=== PATIENT | male | born 1955 | race Caucasian/White ===

== ENCOUNTER 2016-09-06 02:59 | Observation (INO) | payer MEDICARE ==
[2016-09-06] MEDS ORDERED: Aspirin Low Dose CHEW TAB* 81 MG PO ONE (04:04)
[2016-09-06 04:10] LABS: Hematocrit 40 % (42-52); Hemoglobin 13.4 g/dl (14.0-18.0); Mean Corpuscular HGB Conc 33 g/dl (31-36); Mean Corpuscular Hemoglobin 31 pg (27-31); Mean Corpuscular Volume 93 fL (80-94); Mean Platelet Volume 7 um3 (7.4-10.4); Red Blood Count 4.36 10^6/ul (4.0-5.4); Red Cell Distribution Width 13 % (10.5-15); White Blood Count 11.3 10^3/ul (3.5-10.8)
[2016-09-06] MEDS ORDERED: Heparin DRIP 25,000 UNITS(*) 25,000 UNITS/500 ML BAG IVPB ONE (04:15)
[2016-09-06 04:22] LABS: ALT 40 U/L (7-52); Albumin 3.8 g/dL (3.2-5.2); Alkaline Phosphatase 63 U/L (34-104); BUN/Creatinine Ratio 17.5 (8-20); Blood Urea Nitrogen 20 mg/dL (6-24); CO2 Carbon Dioxide 25 mmol/L (22-32); Calcium 9.3 mg/dL (8.6-10.3); Chloride 100 mmol/L (101-111); EGFR African American 83.7 (>60); EGFR Non-African American 65.1 (>60); Glucose 105 mg/dL (70-100); Sodium 129 mmol/L (133-145); Total Protein 6.8 g/dL (6.4-8.9)
[2016-09-06 04:24] LABS: Troponin I 0.01 ng/mL (<0.04)
[2016-09-06] MEDS ORDERED: Heparin VIAL(*) 5000 UNITS/ML VIAL (FIVE THOUSAND) ONE (04:29)
[2016-09-06 04:30] LABS: AST 35 U/L (13-39); Anion Gap 4 mmol/L (2-11)
[2016-09-06] MEDS ORDERED: Heparin VIAL(*) 5000 UNITS/ML VIAL (FIVE THOUSAND) IV SCH ×2 (05:00→08:00)
[2016-09-06] MEDS: Metoprolol Succinate XL TAB* 25 MG PO SCH ×2 (05:11→09:18)
[2016-09-06] MEDS ORDERED: Morphine INJ* 4 MG/ML 1 ML CARPUJECT IV ONE (05:30)
[2016-09-06 06:07] LABS: Alcohol < 10 mg/dL (<10)
[2016-09-06] MEDS ORDERED: Albuterol 2.5 MG/3 ML NEB.SOL* (0.083%) INH PRN (06:26)
[2016-09-06] MEDS ORDERED: Ondansetron INJ* 2 MG/ML VIAL IV PRN (06:26)
[2016-09-06] MEDS ORDERED: traMADol TAB* 50 MG PO PRN (06:26)
[2016-09-06] MEDS ORDERED: Acetaminophen TAB* 325 MG PO PRN (06:26)
[2016-09-06] MEDS ORDERED: NS 0.9% 1000 ML* 1,000 ML IV SCH (06:30)
--- NOTE | 2016-09-06 06:31 | HP ---
H&P (Free Text) History and Physical: PCP: Adan Cordova MD Date/Time of Evaluation: 09/06/2016 0600 CC: palpitation, chest pressure, SOB HPI: Mr Cheng is a 60YO male HX paroxysmal AFIB, HTN, HLD whose AFIB is typically triggered by alcohol and excessive caffeine intake. He reports drinking 6beers yesterday and 2-3 more cups of coffee than usual. He awoke this AM 2nd irregular palpitations like his typical pAFIB, but in addition also had some mild chest pressure and SOB. He denies any nausea, light-headedness, sweats , F/C, cough, congestion, or other issues. He states he was seen ~1week ago by his PCP who gave him an ABX for a cough and increased his BP meds. He cut his BP med back to the previous dose ~2days later because it had dropped to a systolic of 80s. He states his cough is resolved. ECG shows AFIB rate 105 w/ mild ST elevations in V3-6 & I which appears similar to an ECG date 11/15/2015. pCXR is most consistent with interstitial edema. Lab values are reasonably normal. PMedHx HTN HLD paroxysmal AFIB on warfarin GERD anxiety COPD chronic low back pain HX prostate CA Allergies No Known Allergies Allergy (Verified 09/06/16 03:08) Ambulatory Orders ALPRAZolam TAB* [Xanax TAB*] 0.5 mg PO DAILY 07/01/12 Ranitidine TAB (NF) [Zantac TAB (NF)] 150 mg PO BID 07/01/12 Ipratropium 0.5MG/2.5ML NEB* [Atrovent 0.5 MG NEB.MAYRA*] 0.5 mg INH Q4HR PRN 10/20 Albuterol Sulfate [Proair Respiclick] 2 puff INH Q4HR PRN 04/28/15 Atorvastatin* [Lipitor 10 MG*] 10 mg PO DAILY 04/28/15 Fluticasone HFA 110 mcg(NF) [Flovent HFA 110 mcg(NF)] 2 puff INH BID 04/28/15 Losartan TAB* [Cozaar TAB*] 50 mg PO DAILY 04/28/15 Metoprolol Succinate XL TAB* [Toprol XL TAB*] 100 mg PO QAM 10/21/15 Morphine Sulfate Beads [Morphine Sulfate ER] 30 mg PO Q12HR 04/28/15 Morphine TAB (NF) 15 mg PO Q8HR 04/28/15 Potassium Chlor TAB* [Klor Con ER TAB*] 10 meq PO DAILY 04/28/15 Warfarin TAB(*) [Coumadin TAB(*)] 2 mg PO DAILY 04/28/15 PSurgHx L-spine surgery tonsillectomy prostatectomy SocHx: former smoker now dipping 1can smokeless tobacco daily, mild/episodic alcohol consumption, denies recreational drugs; , lives with his ; on disability for his chronic LBP, former worked construction; full code status FamHx: positive for HTN, HLD, CAD ROS: as above, otherwise reviewed and all were negative Constitutional: NAD, normally developed, well-nourished white male vitals: Vital Signs Temp 36.6 C 09/06/16 04:00 Pulse 106 09/06/16 04:00 Resp 20 09/06/16 05:35 BP 90/64 09/06/16 04:00 Pulse Ox 99 09/06/16 04:00 Intake & Output 09/05/16 09/05/16 09/06/16 11:59 23:59 11:59 Weight 83.915 kg HEENM: atraumatic; sclera/conjunctiva: non-icteric/clear; hearing: clinically intact; oropharynx: clear, mucosa moist Neck: soft tissue: non-tender; thyroid: normal Pulmonary: clear to auscultation bilaterally, good aeration, no accessory muscle use CV: RR/RR, normal S1S2, no carotid bruit, no jugular venous distention, 2+ B DP/ PT, no edema Abdominal: soft, non-distended, non-tender, no rebound/guarding/rigidity, normoactive bowel sounds, no hepatosplenomegaly or masses, no costovertebral angle tenderness Musculoskeletal: general: grossly intact; gait: stable Integumental: normal appearance and texture of exposed skin Psychiatric orientation: AA&O to PPS affect: calm mood: cooperative eye contact: good content: reliable responses: timely insight: fair Testing: Lab Results 09/06/16 09/06/16 09/06/16 Range/Units 03:55 03:55 03:55 WBC 11.3 H (3.5-10.8) 10^3/ul RBC 4.36 (4.0-5.4) 10^6/ul Hgb 13.4 L (14.0-18.0) g/dl Hct 40 L (42-52) % MCV 93 (80-94) fL MCH 31 (27-31) pg MCHC 33 (31-36) g/dl RDW 13 (10.5-15) % Plt Count 287 (150-450) 10^3/ul MPV 7 L (7.4-10.4) um3 Neut % (Auto) 52.2 (38-83) % Lymph % (Auto) 33.3 (25-47) % Toole % (Auto) 7.4 (1-9) % Eos % (Auto) 6.1 H (0-6) % Baso % (Auto) 1.0 (0-2) % Absolute Neuts (auto) 5.9 (1.5-7.7) 10^3/ul Absolute Lymphs (auto) 3.8 (1.0-4.8) 10^3/ul Absolute Monos (auto) 0.8 (0-0.8) 10^3/ul Absolute Eos (auto) 0.7 H (0-0.6) 10^3/ul Absolute Basos (auto) 0.1 (0-0.2) 10^3/ul Absolute Nucleated RBC 0.01 10^3/ul Nucleated RBC % 0.1 INR (Anticoag Therapy) (0.89-1.11) APTT (26.0-36.3) seconds Sodium 129 L (133-145) mmol/L Potassium 4.0 (3.5-5.0) mmol/L Chloride 100 L (101-111) mmol/L Carbon Dioxide 25 (22-32) mmol/L Anion Gap 4 (2-11) mmol/L BUN 20 (6-24) mg/dL Creatinine 1.14 (0.67-1.17) mg/dL Est GFR ( Amer) 83.7 (>60) Est GFR (Non-Af Amer) 65.1 (>60) BUN/Creatinine Ratio 17.5 (8-20) Glucose 105 H (70-100) mg/dL Lactic Acid 1.0 (0.5-2.0) mmol/L Calcium 9.3 (8.6-10.3) mg/dL Total Bilirubin 0.30 (0.2-1.0) mg/dL AST 35 (13-39) U/L ALT 40 (7-52) U/L Alkaline Phosphatase 63 (34-104) U/L Troponin I 0.01 (<0.04) ng/mL Total Protein 6.8 (6.4-8.9) g/dL Albumin 3.8 (3.2-5.2) g/dL Globulin 3.0 (2-4) g/dL Albumin/Globulin Ratio 1.3 (1-3) Serum Alcohol < 10 (<10) mg/dL 09/06/16 Range/Units 03:55 WBC (3.5-10.8) 10^3/ul RBC (4.0-5.4) 10^6/ul Hgb (14.0-18.0) g/dl Hct (42-52) % MCV (80-94) fL MCH (27-31) pg MCHC (31-36) g/dl RDW (10.5-15) % Plt Count (150-450) 10^3/ul MPV (7.4-10.4) um3 Neut % (Auto) (38-83) % Lymph % (Auto) (25-47) % Toole % (Auto) (1-9) % Eos % (Auto) (0-6) % Baso % (Auto) (0-2) % Absolute Neuts (auto) (1.5-7.7) 10^3/ul Absolute Lymphs (auto) (1.0-4.8) 10^3/ul Absolute Monos (auto) (0-0.8) 10^3/ul Absolute Eos (auto) (0-0.6) 10^3/ul Absolute Basos (auto) (0-0.2) 10^3/ul Absolute Nucleated RBC 10^3/ul Nucleated RBC % INR (Anticoag Therapy) 1.50 H (0.89-1.11) APTT 35.4 (26.0-36.3) seconds Sodium (133-145) mmol/L Potassium (3.5-5.0) mmol/L Chloride (101-111) mmol/L Carbon Dioxide (22-32) mmol/L Anion Gap (2-11) mmol/L BUN (6-24) mg/dL Creatinine (0.67-1.17) mg/dL Est GFR ( Amer) (>60) Est GFR (Non-Af Amer) (>60) BUN/Creatinine Ratio (8-20) Glucose (70-100) mg/dL Lactic Acid (0.5-2.0) mmol/L Calcium (8.6-10.3) mg/dL Total Bilirubin (0.2-1.0) mg/dL AST (13-39) U/L ALT (7-52) U/L Alkaline Phosphatase (34-104) U/L Troponin I (<0.04) ng/mL Total Protein (6.4-8.9) g/dL Albumin (3.2-5.2) g/dL Globulin (2-4) g/dL Albumin/Globulin Ratio (1-3) Serum Alcohol (<10) mg/dL ECG, personally reviewed: AFIB rate 105 w/ mild ST elevations in V3-6 & I which appears similar to an ECG date 11/15/2015 CXR, personally reviewed: most consistent with interstitial edema. Lab values are reasonably normal Impression: 60M presenting with an episode of AFIB/RVR w/ chest pressure & SOB not typical for him DIAGNOSIS & PLAN Primary chest pain : telemetry : aspirin : metoprolol : heparin GTT : trend troponin : NST this AM : supplemental oxygen : supportive care AFIB/RVR : INR subtherapeutic, continue warfarin at increased dose of 2.5mg daily from 2mg : heparin GTT : rate control Secondary HTN : continue losartan & metoprolol HLD : continue atorvastatin GERD : hold ranitidine : IV pantoprazole anxiety : continue alprazolam COPD : albuterol nebs : mometasone/salmeterol : tiotropium chronic low back pain : continue morphine home regimen Admission Rational: observation for r/o ACS and control of AFIB/RVR DVTp: heparin GTT bridge to warfarin Code Status: full HCP:
--- NOTE | 2016-09-06 06:34 | ED ---
Eleonora Mitchell Erika, scribed for Law Almaguer MD on 09/06/16 at 0355 . Palpitations / Dysrhythmia - HPI Summary HPI Summary: Patient is a 60-year-old male presenting to the ED with a CC of palpitations. Patient reports a Hx A Fib, and states this felt similar. He reports that at 00: 00, pt woke up from his sleep with intermittent flutters, which then became constant. Patient took Xanax and metoprolol, and states palpitations have somewhat improved. Patient also reports mid-sternal chest pain he describes as "heartburn," which started at 00:30. This pain lasted 1 hour, and was most notable when pt stood up. Pt states he did drink EtOH last night. - History of Current Complaint Chief Complaint: EDDysrhythmPalp Time Seen by Provider: 09/06/16 03:46 Hx Obtained From: Patient Onset/Duration: Sudden Onset, Lasting Hours, Still Present - improving Timing: Constant Severity Initially: Moderate Severity Currently: Mild Character: Fluttering Alleviating: Medication - xanax and metoprolol Associated Signs & Symptoms: Chest Pain - mid-sternal, resolved - Allergy/Home Medications Allergies/Adverse Reactions: Allergies Allergy/AdvReac Type Severity Reaction Status Date / Time No Known Allergies Allergy Verified 09/06/16 03:08 PMH/Surg Hx/FS Hx/Imm Hx Endocrine/Hematology History: Reports: Hx Anticoagulant Therapy - coumadin Denies: Hx Diabetes, Hx Thyroid Disease Cardiovascular History: Reports: Hx Hypertension - on meds Denies: Hx Congestive Heart Failure, Hx Pacemaker/ICD Respiratory History: Reports: Hx Chronic Obstructive Pulmonary Disease (COPD), Other Respiratory Problems/Disorders Denies: Hx Asthma History: Denies: Hx Renal Disease Musculoskeletal History: Reports: Hx Back Problems Sensory History: Reports: Hx Contacts or Glasses - reading glasses Denies: Hx Hearing Aid Opthamlomology History: Reports: Hx Contacts or Glasses - reading glasses Neurological History: Denies: Hx Dementia, Hx Seizures Psychiatric History: Reports: Hx Anxiety, Hx Substance Abuse - alcohol daily Denies: Hx Panic Disorder - Cancer History Cancer Type, Location and Year: PROSTATE CA - Surgical History Surgery Procedure, Year, and Place: 1995 LSP BACK SURGERY. 2010 PROSTATECTOMY. 2008 [facility] Hx Anesthesia Reactions: No - Immunization History Date of Tetanus Vaccine: UNK Date of Influenza Vaccine: 06/19 Infectious Disease History: No Infectious Disease History: Denies: Hx Hepatitis, Hx Human Immunodeficiency Virus (HIV), Traveled Outside the [place] in Last 30 Days - Family History Known Family History: Positive: Cardiac Disease Family History: father, brother, sister - CABG - Social History Lives: With Family Alcohol Use: Daily Hx Substance Use: No Substance Use Type: Reports: None Hx Tobacco Use: Yes Smoking Status (MU): Former Smoker Type: Cigarettes Have You Smoked in the Last Year: Yes Review of Systems Negative: Fever Positive: Palpitations, Chest Pain All Other Systems Reviewed And Are Negative: Yes Physical Exam Triage Information Reviewed: Yes Vital Signs On Initial Exam: Initial Vitals Temp Pulse Resp BP Pulse Ox 98.2 F 80 14 135/76 98 09/06/16 03:02 09/06/16 03:02 09/06/16 03:02 09/06/16 03:02 09/06/16 03:02 Vital Signs Reviewed: Yes Appearance: Positive: Well-Appearing, No Pain Distress Skin: Positive: Warm Eyes: Positive: TONEY ENT: Positive: Hearing grossly normal Neck: Positive: Supple Respiratory/Lung Sounds: Positive: Clear to Auscultation, Breath Sounds Present Cardiovascular: Positive: IRR. Negative: Murmur Abdomen Description: Positive: Nontender, Soft Bowel Sounds: Positive: Present Musculoskeletal: Positive: Strength/ROM Intact Neurological: Positive: Sensory/Motor Intact, Alert, Oriented to Person Place, Time, Normal Gait Psychiatric: Positive: Affect/Mood Appropriate Diagnostics - Vital Signs Vital Signs Temp Pulse Resp BP Pulse Ox 09/06/16 03:02 98.2 F 80 14 135/76 98 - Laboratory Lab Results: Lab Results 09/06/16 09/06/16 09/06/16 Range/Units 03:55 03:55 03:55 WBC 11.3 H (3.5-10.8) 10^3/ul RBC 4.36 (4.0-5.4) 10^6/ul Hgb 13.4 L (14.0-18.0) g/dl Hct 40 L (42-52) % MCV 93 (80-94) fL MCH 31 (27-31) pg MCHC 33 (31-36) g/dl RDW 13 (10.5-15) % Plt Count 287 (150-450) 10^3/ul MPV 7 L (7.4-10.4) um3 Neut % (Auto) 52.2 (38-83) % Lymph % (Auto) 33.3 (25-47) % Hamlin % (Auto) 7.4 (1-9) % Eos % (Auto) 6.1 H (0-6) % Baso % (Auto) 1.0 (0-2) % Absolute Neuts (auto) 5.9 (1.5-7.7) 10^3/ul Absolute Lymphs (auto) 3.8 (1.0-4.8) 10^3/ul Absolute Monos (auto) 0.8 (0-0.8) 10^3/ul Absolute Eos (auto) 0.7 H (0-0.6) 10^3/ul Absolute Basos (auto) 0.1 (0-0.2) 10^3/ul Absolute Nucleated RBC 0.01 10^3/ul Nucleated RBC % 0.1 INR (Anticoag Therapy) (0.89-1.11) APTT (26.0-36.3) seconds Sodium 129 L (133-145) mmol/L Potassium 4.0 (3.5-5.0) mmol/L Chloride 100 L (101-111) mmol/L Carbon Dioxide 25 (22-32) mmol/L Anion Gap 4 (2-11) mmol/L BUN 20 (6-24) mg/dL Creatinine 1.14 (0.67-1.17) mg/dL Est GFR ( Amer) 83.7 (>60) Est GFR (Non-Af Amer) 65.1 (>60) BUN/Creatinine Ratio 17.5 (8-20) Glucose 105 H (70-100) mg/dL Lactic Acid 1.0 (0.5-2.0) mmol/L Calcium 9.3 (8.6-10.3) mg/dL Total Bilirubin 0.30 (0.2-1.0) mg/dL AST 35 (13-39) U/L ALT 40 (7-52) U/L Alkaline Phosphatase 63 (34-104) U/L Troponin I 0.01 (<0.04) ng/mL Total Protein 6.8 (6.4-8.9) g/dL Albumin 3.8 (3.2-5.2) g/dL Globulin 3.0 (2-4) g/dL Albumin/Globulin Ratio 1.3 (1-3) Serum Alcohol < 10 (<10) mg/dL 09/06/16 Range/Units 03:55 WBC (3.5-10.8) 10^3/ul RBC (4.0-5.4) 10^6/ul Hgb (14.0-18.0) g/dl Hct (42-52) % MCV (80-94) fL MCH (27-31) pg MCHC (31-36) g/dl RDW (10.5-15) % Plt Count (150-450) 10^3/ul MPV (7.4-10.4) um3 Neut % (Auto) (38-83) % Lymph % (Auto) (25-47) % Hamlin % (Auto) (1-9) % Eos % (Auto) (0-6) % Baso % (Auto) (0-2) % Absolute Neuts (auto) (1.5-7.7) 10^3/ul Absolute Lymphs (auto) (1.0-4.8) 10^3/ul Absolute Monos (auto) (0-0.8) 10^3/ul Absolute Eos (auto) (0-0.6) 10^3/ul Absolute Basos (auto) (0-0.2) 10^3/ul Absolute Nucleated RBC 10^3/ul Nucleated RBC % INR (Anticoag Therapy) 1.50 H (0.89-1.11) APTT 35.4 (26.0-36.3) seconds Sodium (133-145) mmol/L Potassium (3.5-5.0) mmol/L Chloride (101-111) mmol/L Carbon Dioxide (22-32) mmol/L Anion Gap (2-11) mmol/L BUN (6-24) mg/dL Creatinine (0.67-1.17) mg/dL Est GFR ( Amer) (>60) Est GFR (Non-Af Amer) (>60) BUN/Creatinine Ratio (8-20) Glucose (70-100) mg/dL Lactic Acid (0.5-2.0) mmol/L Calcium (8.6-10.3) mg/dL Total Bilirubin (0.2-1.0) mg/dL AST (13-39) U/L ALT (7-52) U/L Alkaline Phosphatase (34-104) U/L Troponin I (<0.04) ng/mL Total Protein (6.4-8.9) g/dL Albumin (3.2-5.2) g/dL Globulin (2-4) g/dL Albumin/Globulin Ratio (1-3) Serum Alcohol (<10) mg/dL Result Diagrams: 09/06/16 03:55 09/06/16 03:55 Lab Statement: Any lab studies that have been ordered have been reviewed, and results considered in the medical decision making process. - EKG 03:37 Cardiac Rate: Tachycardia - at 105 bpm EKG Rhythm: Atrial Fibrillation - with RVR EKG Interpretation: ST elevated I, aVL, V6. Discussed with Dr. Baker 04:35 EKG Comparison: No Significant Change - from prior Re-Evaluation - Re-Evaluation First Eval Re-Evaluation Time: 03:45 - case d/w dr baker who reviewed ekg, no stemi criteria, rec heparin Course/Dx - Course Assessment/Plan: A 60 y/o M presents to the ED after a 1 hour episode of midsternal chest pain, described as burning, and heart flutters. Pt has a Hx A Fib. EKG shows A Fib at 105 bpm with RVR, and ST elevated in I, aVL, and V6. EKG was discussed with Dr. Baker, who recommends admission, repeat EKG, and heparin drip at this time. Initial troponin was 0.01. Patient will be admitted to Dr. Luna for further work up and management. - Diagnoses Provider Diagnoses: ACS (acute coronary syndrome), Rapid atrial fibrillation - Physician Notifications Discussed Care Of Patient With: Dr. Baker (interventionalist) at 03:53 - discussed EKG and history. Recommends heparin drip and repeat EKG in [address] Luna (hospitalist) at 04:09 - agrees to admit Instructed by Provider To: Admit As Inpatient - Critical Care Time Critical Care Time: 30-74 min Discharge - Discharge Plan Condition: Stable Disposition: ADMITTED TO [facility] Referrals: Megan Lomeli MD [Primary Care Provider] - The documentation as recorded by the scribEleonora alva Erika accurately reflects the service I personally performed and the decisions made by me, Law Almaguer MD.
[2016-09-06] MEDS ORDERED: Heparin DRIP 25,000 UNITS(*) 25,000 UNITS/500 ML BAG IV SCH (07:45)
[2016-09-06] MEDS ORDERED: Spiriva Inhaler DEVICE* 1 EACH DEVICE INH ONE (08:00)
[2016-09-06] MEDS ORDERED: Regadenoson* 0.4 MG/5 ML SYRINGE ONE (08:07)
[2016-09-06] MEDS: Albuterol 2.5 MG/3 ML NEB.SOL* (0.083%) INH SCH ×2 (08:22→14:51)
[2016-09-06 08:36] LABS: Hematocrit 42 % (42-52); Hemoglobin 14.4 g/dl (14.0-18.0); Mean Corpuscular HGB Conc 34 g/dl (31-36); Mean Corpuscular Hemoglobin 32 pg (27-31); Mean Corpuscular Volume 92 fL (80-94); Mean Platelet Volume 7 um3 (7.4-10.4); Red Blood Count 4.56 10^6/ul (4.0-5.4); Red Cell Distribution Width 13 % (10.5-15); White Blood Count 10.4 10^3/ul (3.5-10.8)
--- NOTE | 2016-09-06 08:37 | RAD ---
Indication: Atrial fibrillation, chest pain. Single frontal view of the chest performed at 0418 hours was reviewed. Comparison is made with previous exam dated November 15, 2015. Cardiomegaly is noted. Hyperinflated lung leahy with chronic interstitial disease is noted. No alveolar consolidation is noted. IMPRESSION: FINDINGS CONSISTENT WITH CHRONIC INTERSTITIAL DISEASE.
[2016-09-06 08:51] LABS: Troponin I 0.01 ng/mL (<0.04)
[2016-09-06] MEDS ORDERED: Losartan TAB* 25 MG PO SCH (09:00)
[2016-09-06] MEDS ORDERED: Potassium Chlor TAB* 10 MEQ TAB.ER PO SCH (09:00)
[2016-09-06] MEDS ORDERED: Pantoprazole IV* 40 MG IV SCH (09:00)
[2016-09-06] MEDS ORDERED: Aspirin TAB* 325 MG PO SCH (09:00)
[2016-09-06] MEDS ORDERED: Docusate CAP* 100 MG PO SCH (09:00)
[2016-09-06] MEDS ORDERED: Atorvastatin* 10 MG TAB PO SCH (09:00)
[2016-09-06] MEDS ORDERED: Morphine TAB Extended Release (*) 30 MG TAB.ER PO SCH (09:00)
[2016-09-06] MEDS ORDERED: Tiotropium CAP.INH* CAP.INH/18 MCG (USE ORDER SET !) INH SCH (09:00)
[2016-09-06] MEDS ORDERED: ALPRAZolam TAB* 0.5 MG PO SCH (09:00)
[2016-09-06] MEDS ORDERED: Mometasone/Formoter 200/5 MDI INH SCH (09:00)
[2016-09-06] MEDS ORDERED: [UNRECOGNIZED DRUG - OTHER] PO SCH (09:00)
[2016-09-06] MEDS ORDERED: Metoprolol Succinate XL TAB* 100 MG PO SCH (09:00)
[2016-09-06 11:41] LABS: Troponin I 0.01 ng/mL (<0.04)
[2016-09-06] MEDS ORDERED: Morphine TAB (NF) 15 MG TAB PO SCH (14:00)
[2016-09-06] MEDS ORDERED: Morphine ORAL.SOLN 10 mg* 2 MG/ML UDC 5 ml PO SCH (14:00)
--- NOTE | 2016-09-06 16:25 | PN ---
Subjective Date of Service: 09/06/16 Interval History: Pt is feeling well. He states he has intermittently been lightheaded but none recently while sitting up in bed. No chest pain. He thinks the chest discomfort prior to presenting to the ER was acid reflux. He wants to go home. Objective Active Medications: Acetaminophen (Tylenol Tab*) 650 mg PO Q6H PRN PRN Reason: FEVER/PAIN Albuterol (Ventolin 2.5 Mg/3 Ml Neb.Aaliyah*) 2.5 mg INH Q2H PRN PRN Reason: SOB/WHEEZING Albuterol (Ventolin 2.5 Mg/3 Ml Neb.Aaliyah*) 2.5 mg INH [id number] AWAKE [facility] Last Admin: 09/06/16 14:51 Dose: 2.5 mg Alprazolam (Xanax Tab*) 0.5 mg PO DAILY [facility] Last Admin: 09/06/16 09:13 Dose: 0.5 mg Aspirin (Aspirin Tab*) 325 mg PO DAILY SKYLAR Last Admin: 09/06/16 09:14 Dose: 325 mg Atorvastatin Calcium (Lipitor*) 10 mg PO DAILY [facility] Last Admin: 09/06/16 09:14 Dose: 10 mg Docusate Sodium (Colace Cap*) 200 mg PO BID SKYLAR Last Admin: 09/06/16 09:15 Dose: 200 mg Heparin Sodium (Porcine) (Heparin Vial(*)) 0 units IV .PER PROTOCOL SKYLAR PRN Reason: Protocol Last Admin: 09/06/16 04:41 Dose: 6,200 units Sodium Chloride (Ns 0.9% 1000 Ml*) 1,000 mls @ 100 mls/hr IV PER RATE [facility] Last Admin: 09/06/16 08:40 Dose: 100 mls/hr Heparin Sodium/Dextrose (Heparin Drip 25,000 Units(*)) 25,000 units in 500 mls @ 0 mls/hr IV .NO INITIAL BOLUS SKYLAR; As Directed PRN Reason: Protocol Losartan Potassium (Cozaar Tab*) 50 mg PO DAILY [facility] Last Admin: 09/06/16 09:20 Dose: 50 mg Melatonin (Melatonin (Nf)) 3 mg PO BEDTIME PRN; Protocol PRN Reason: Sleep Metoprolol Succinate (Toprol Xl Tab*) 12.5 mg PO DAILY [facility] Last Admin: 09/06/16 09:18 Dose: 12.5 mg Metoprolol Succinate (Toprol Xl Tab*) 100 mg PO QAM [facility] Last Admin: 09/06/16 09:20 Dose: 100 mg Mometasone Furoate/Formoterol Fumar (Dulera 200/5 Mdi*) 2 puff INH BID [facility] Last Admin: 09/06/16 08:25 Dose: 2 puff Morphine Sulfate (Morphine Oral.Soln 10 Mg*) 15 mg PO Q8HR [facility] Last Admin: 09/06/16 15:06 Dose: 15 mg Morphine Sulfate (Ms Contin(*)) 30 mg PO Q12H [facility] Last Admin: 09/06/16 09:17 Dose: 30 mg Ondansetron HCl (Zofran Inj*) 4 mg IV Q6H PRN PRN Reason: NAUSEA Pantoprazole Sodium (Protonix Iv*) 40 mg IV DAILY [facility] Last Admin: 09/06/16 09:20 Dose: 40 mg Pharmacy Profile Note (Coumadin Daily Reminder*) 1 note FOLLOW UP 1700 [facility] Potassium Chloride (Klor Con Er Tab*) 10 meq PO DAILY [facility] Last Admin: 09/06/16 09:21 Dose: 10 meq Tiotropium [place] (Spiriva Cap.Inh*) 1 cap INH DAILY [facility] Last Admin: 09/06/16 08:25 Dose: 1 cap.inh Tramadol HCl (Ultram*) 50 mg PO Q6H PRN PRN Reason: PAIN Last Admin: 09/06/16 07:11 Dose: 50 mg Warfarin Sodium (Coumadin Tab(*)) 2.5 mg PO DAILY@1700 [facility] PRN Reason: Protocol Vital Signs 09/06/16 09/06/16 09/06/16 06:30 07:00 07:30 Temperature Pulse Rate 89 83 88 Respiratory 18 16 13 Rate Blood Pressure 94/63 92/63 99/64 (mmHg) O2 Sat by Pulse 93 94 95 Oximetry 09/06/16 09/06/16 09/06/16 07:44 08:00 08:09 Temperature Pulse Rate 110 83 Respiratory 18 14 18 Rate Blood Pressure 98/64 111/71 (mmHg) O2 Sat by Pulse 95 Oximetry 09/06/16 09/06/16 09/06/16 08:21 08:22 08:29 Temperature 97.7 F 97.7 F Pulse Rate 61 91 92 Respiratory 20 20 16 Rate Blood Pressure 108/59 108/59 (mmHg) O2 Sat by Pulse 97 97 97 Oximetry 09/06/16 09/06/16 09/06/16 09:00 09:13 09:17 Temperature Pulse Rate Respiratory 16 20 20 Rate Blood Pressure (mmHg) O2 Sat by Pulse Oximetry 09/06/16 09/06/16 09/06/16 10:00 11:00 11:13 Temperature Pulse Rate Respiratory 18 16 17 Rate Blood Pressure (mmHg) O2 Sat by Pulse Oximetry 09/06/16 09/06/16 09/06/16 11:17 11:35 14:54 Temperature 97.4 F Pulse Rate 62 65 Respiratory 17 16 16 Rate Blood Pressure 92/57 (mmHg) O2 Sat by Pulse 95 96 Oximetry 09/06/16 09/06/16 09/06/16 15:06 15:21 15:22 Temperature Pulse Rate 74 Respiratory 19 19 Rate Blood Pressure 82/49 (mmHg) O2 Sat by Pulse 96 Oximetry Oxygen Devices in Use Now: None Appearance: Middle aged male lying in bed, NAD Eyes: No Scleral Icterus Ears/Nose/Mouth/Throat: Mucous Membranes Moist Respiratory: Symmetrical Chest Expansion and Respiratory Effort, Clear to Auscultation Cardiovascular: NL Sounds; No Murmurs; No JVD, RRR, No Edema Abdominal: NL Sounds; No Tenderness; No Distention Extremities: No Clubbing, Cyanosis Skin: No Rash or Ulcers, No Nodules or Sclerosis Neurological: Alert and Oriented x 3 Result Diagrams: 09/06/16 08:21 09/06/16 08:21 Additional Lab and Data: Lab Results 09/06/16 09/06/16 09/06/16 Range/Units 03:55 03:55 03:55 WBC 11.3 H (3.5-10.8) 10^3/ul RBC 4.36 (4.0-5.4) 10^6/ul Hgb 13.4 L (14.0-18.0) g/dl Hct 40 L (42-52) % MCV 93 (80-94) fL MCH 31 (27-31) pg MCHC 33 (31-36) g/dl RDW 13 (10.5-15) % Plt Count 287 (150-450) 10^3/ul MPV 7 L (7.4-10.4) um3 Neut % (Auto) 52.2 (38-83) % Lymph % (Auto) 33.3 (25-47) % Vermilion % (Auto) 7.4 (1-9) % Eos % (Auto) 6.1 H (0-6) % Baso % (Auto) 1.0 (0-2) % Absolute Neuts (auto) 5.9 (1.5-7.7) 10^3/ul Absolute Lymphs (auto) 3.8 (1.0-4.8) 10^3/ul Absolute Monos (auto) 0.8 (0-0.8) 10^3/ul Absolute Eos (auto) 0.7 H (0-0.6) 10^3/ul Absolute Basos (auto) 0.1 (0-0.2) 10^3/ul Absolute Nucleated RBC 0.01 10^3/ul Nucleated RBC % 0.1 INR (Anticoag Therapy) (0.89-1.11) APTT (26.0-36.3) seconds Sodium 129 L (133-145) mmol/L Potassium 4.0 (3.5-5.0) mmol/L Chloride 100 L (101-111) mmol/L Carbon Dioxide 25 (22-32) mmol/L Anion Gap 4 (2-11) mmol/L BUN 20 (6-24) mg/dL Creatinine 1.14 (0.67-1.17) mg/dL Est GFR ( Amer) 83.7 (>60) Est GFR (Non-Af Amer) 65.1 (>60) BUN/Creatinine Ratio 17.5 (8-20) Glucose 105 H (70-100) mg/dL Lactic Acid 1.0 (0.5-2.0) mmol/L Calcium 9.3 (8.6-10.3) mg/dL Total Bilirubin 0.30 (0.2-1.0) mg/dL AST 35 (13-39) U/L ALT 40 (7-52) U/L Alkaline Phosphatase 63 (34-104) U/L Troponin I 0.01 (<0.04) ng/mL Total Protein 6.8 (6.4-8.9) g/dL Albumin 3.8 (3.2-5.2) g/dL Globulin 3.0 (2-4) g/dL Albumin/Globulin Ratio 1.3 (1-3) Serum Alcohol < 10 (<10) mg/dL 09/06/16 Range/Units 03:55 WBC (3.5-10.8) 10^3/ul RBC (4.0-5.4) 10^6/ul Hgb (14.0-18.0) g/dl Hct (42-52) % MCV (80-94) fL MCH (27-31) pg MCHC (31-36) g/dl RDW (10.5-15) % Plt Count (150-450) 10^3/ul MPV (7.4-10.4) um3 Neut % (Auto) (38-83) % Lymph % (Auto) (25-47) % Vermilion % (Auto) (1-9) % Eos % (Auto) (0-6) % Baso % (Auto) (0-2) % Absolute Neuts (auto) (1.5-7.7) 10^3/ul Absolute Lymphs (auto) (1.0-4.8) 10^3/ul Absolute Monos (auto) (0-0.8) 10^3/ul Absolute Eos (auto) (0-0.6) 10^3/ul Absolute Basos (auto) (0-0.2) 10^3/ul Absolute Nucleated RBC 10^3/ul Nucleated RBC % INR (Anticoag Therapy) 1.50 H (0.89-1.11) APTT 35.4 (26.0-36.3) seconds Sodium (133-145) mmol/L Potassium (3.5-5.0) mmol/L Chloride (101-111) mmol/L Carbon Dioxide (22-32) mmol/L Anion Gap (2-11) mmol/L BUN (6-24) mg/dL Creatinine (0.67-1.17) mg/dL Est GFR ( Amer) (>60) Est GFR (Non-Af Amer) (>60) BUN/Creatinine Ratio (8-20) Glucose (70-100) mg/dL Lactic Acid (0.5-2.0) mmol/L Calcium (8.6-10.3) mg/dL Total Bilirubin (0.2-1.0) mg/dL AST (13-39) U/L ALT (7-52) U/L Alkaline Phosphatase (34-104) U/L Troponin I (<0.04) ng/mL Total Protein (6.4-8.9) g/dL Albumin (3.2-5.2) g/dL Globulin (2-4) g/dL Albumin/Globulin Ratio (1-3) Serum Alcohol (<10) mg/dL Assess/Plan/Problems-Billing Mr Cheng is a 60 yo M who has a h/o PAF, HTN, HLD and COPD who presented to the ER with c/o chest pain, palpitations and SOB and was found to be in rapid afib. - Patient Problems (1) PAF (paroxysmal atrial fibrillation) Current Visit: Yes Status: Acute Code(s): I48.0 - PAROXYSMAL ATRIAL FIBRILLATION SNOMED Code(s): 011067798 Comment: Pt broke into NSR on his own. Continue home does of metoprolol and increase coumadin. He will need an INR check 09/08/16. He should avoid EtOH and excessive caffeine. (2) Chest pain Current Visit: Yes Status: Acute Code(s): R07.9 - CHEST PAIN, UNSPECIFIED SNOMED Code(s): 77388991 Comment: I suspect this is secondary to the rapid afib. He does need a stress test but I think this can be done as an outpatient. (3) HTN (hypertension) Current Visit: Yes Status: Acute Code(s): I10 - ESSENTIAL (PRIMARY) HYPERTENSION SNOMED Code(s): 35240149 Comment: Pt's BP is lower than normal. He is asymptomatic. He believes he got too much metoprolol this AM and he normally takes his losartan in the evening not morning like he received it today. (4) HLD (hyperlipidemia) Current Visit: Yes Status: Acute Code(s): E78.5 - HYPERLIPIDEMIA, UNSPECIFIED SNOMED Code(s): 00706081 Comment: Continue lipitor. (5) COPD (chronic obstructive pulmonary disease) Current Visit: Yes Status: Acute Code(s): J44.9 - CHRONIC OBSTRUCTIVE PULMONARY DISEASE, UNSPECIFIED SNOMED Code(s): 21098176 Comment: No signs of exacerbation. Continue flovent and atrovent. (6) DVT prophylaxis Current Visit: Yes Status: Acute Code(s): HDK0536 - SNOMED Code(s): 623680436 Comment: heparin drip (7) Full code status Current Visit: Yes Status: Acute Code(s): Z78.9 - OTHER SPECIFIED HEALTH STATUS SNOMED Code(s): 213172922 Status and Disposition: d/c home
[2016-09-06 16:46] VITALS: BP 86/62
[2016-09-06] MEDS ORDERED: Warfarin TAB(*) 2.5 MG PO SCH (17:00)
[2016-09-06 17:21] LABS: BUN/Creatinine Ratio 15.2 (8-20); Calcium 9.2 mg/dL (8.6-10.3); EGFR African American 85.4 (>60); EGFR Non-African American 66.4 (>60); Potassium 4.6 mmol/L (3.5-5.0)
[2016-09-06] MEDS ORDERED: CMC Melatonin (NF) 3 MG TAB PO PRN (21:00)
--- NOTE | 2016-09-07 09:45 | DS ---
DISCHARGE SUMMARY: DATE OF ADMISSION: 09/06/16. DATE OF DISCHARGE: 09/06/16. PRIMARY CARE PROVIDER: Dr. Cordova. GEOGRAPHICAL HISTORIAN: Dr. Babin. PRINCIPAL DIAGNOSES: 1. Paroxysmal rapid atrial fibrillation. 2. Chest pain - likely secondary to atrial fibrillation. SECONDARY DIAGNOSES: 1. Hypertension. 2. Hyperlipidemia. 3. Chronic obstructive pulmonary disease. DISCHARGE MEDICATIONS: 1. Atrovent one neb inhaled q.4 hours p.r.n. shortness of breath. 2. Flovent two puffs inhaled twice daily. 3. Lipitor 10 mg p.o. daily. 4. Albuterol two puffs inhaled q.4 hours p.r.n. shortness of breath. 5. Xanax 0.5 mg p.o. daily. 6. Potassium chloride 10 mEq p.o. daily. 7. Morphine 15 mg p.o. q.8 hours. 8. Morphine sulfate ER 30 mg p.o. q.12 hours. 9. Metoprolol XL 100 mg p.o. daily. 10. Losartan 50 mg p.o. q.h.s. 11. Coumadin 4 mg p.o. tonight and 09/07/16, then back to 2 mg daily, but an INR is to be obtained 09/08/16. 12. Ranitidine 150 mg p.o. b.i.d. HOSPITAL COURSE: Mr. Cheng is 60-year-old male who presented to the emergency room with complaints of palpitations, chest pressures, and shortness of breath. The patient has a history of paroxysmal atrial fibrillation and notes that he develops AFib when he drinks alcohol or excessive caffeine intake. The patient had 6 beers the day prior to admission and drank 2 to 3 more cups of coffee than usual on the day of prior to admission. The patient, in addition to the irregular heart beat, also had mild chest pressure and shortness of breath. The patient was admitted for treatment of the rapid atrial fibrillation and evaluation of the chest pressure. The patient spontaneously converted to normal sinus rhythm on the morning of admission. In terms of the chest pressure, his troponins were flat, 0.01. There were no signs of acute coronary syndrome. The patient is adamant about going home today. I do believe that the patient needs a stress test; however, I feel that this can be performed as an outpatient as it is likely that his chest pressure is related to the rapid atrial fibrillation and not coronary artery disease. In terms of the atrial fibrillation, the patient is going to be maintained on his usual dose of metoprolol XL 100 mg p.o. daily. He did receive extra metoprolol on the morning of 09/06/16. His INR is subtherapeutic. He states that he takes his Coumadin as prescribed; however, he has a very difficult time controlling his INR. The patient will be taking Coumadin 4 mg tonight and on 09/07/16, followed by an INR that needs to be obtained on 09/08/16. Of note, the patient normally takes his losartan at bedtime. He received this on the morning of admission. The patient's blood pressure has been soft during the course of the hospitalization. He has been up and he has been ambulating without any lightheadedness or other symptoms. At this point, the patient again is wanting to leave the hospital. I do feel that this is safe as he will not be alone as his significant other will be with him. Additionally, the patient states his blood pressure has been running lower over the last couple of weeks. He will go back to his usual medication regimen tomorrow. The patient was found to be slightly hyponatremic on admission with a sodium of 129. I suspect this is secondary to volume depletion. The patient received normal saline during the course of his admission. A followup sodium level is pending at the time of this dictation. FOLLOWUP CONCERNS: The patient is being discharged home today, 09/06/16. He is to follow up with Dr. Cordova in the next 4 to 7 days. ACTIVITY LEVEL: As tolerated. DIET: Low fat. CONDITION ON DISCHARGE: Stable. TIME SPENT: 35 minutes were spent discharging this patient. CC: Dr. Cordova; Dr. Babin * [id number]/[facility] #: [id number] MTDD
== END 2016-09-06 18:10 | disposition home or self-care (01) ==
LOC: ED 02:59 → MEDTELE 06:22
PROVIDERS: ADMIT Hospitalist; ATTEND Hospitalist
DX: I48.0 Paroxysmal atrial fibrillation (principal); R07.9 Chest pain, unspecified; I10 Essential (primary) hypertension; E78.5 Hyperlipidemia, unspecified; J44.9 Chronic obstructive pulmonary disease, unspecified; K21.9 Gastro-esophageal reflux disease without esophagitis; Z79.891 Long term (current) use of opiate analgesic; Z85.46 Personal history of malignant neoplasm of prostate; Z87.891 Personal history of nicotine dependence; Z79.01 Long term (current) use of anticoagulants
CPT/HCPCS: 36415; 71010; 80048; 80053; 80320; 83605; 84484; 84520; 85025; 85610; 85730; 93005; 94640; 94760; 96374; 96375; 99284; A9270-GY; G0378; G0480; J1644; J2270; J2785

== ENCOUNTER 2018-10-18 08:22 | Emergency (ER) | payer MEDICARE ==
[2018-10-18] MEDS ORDERED: cloNIDine TAB* 0.1 MG PO ONE (08:54)
--- NOTE | 2018-10-18 09:01 | ED ---
Palpitations / Dysrhythmia - HPI Summary HPI Summary: This patient is a 62 year old M presenting to [facility] with a chief complaint of palpitations since 1 day ago. 1 day ago, patient reports feeling a sudden sharp pain in left side, then feeling hot, and hearing his heart beating loud and fast in his neck. Patient reports that he took his blood pressure yesterday and it was elevated. He notes that he stood up this morning and experienced the same symptoms. The patient rates the pain 0/10 in severity. Symptoms aggravated by nothing. Symptoms alleviated by nothing. Patient reports increased shortness of breath. Patient has hx of AFib, HTN and COPD. Patient smokes. Patient takes metoprolol and Coumadin. 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 - History of Current Complaint Chief Complaint: EDShortnessOfBreath Time Seen by Provider: 10/18/18 08:29 Hx Obtained From: Patient Onset/Duration: Sudden Onset, Lasting Hours, Still Present Severity Initially: Mild Severity Currently: Mild Character: Fast, Pounding Aggravating: Nothing Alleviating: Nothing Associated Signs & Symptoms: Chest Pain - sharp pain in left side, under ribs, Shortness of Breath - Allergy/Home Medications Allergies/Adverse Reactions: Allergies Allergy/AdvReac Type Severity Reaction Status Date / Time No Known Allergies Allergy Verified 10/18/18 08:34 Home Medications: Home Medications Metoprolol Succinate XL TAB* [Toprol XL TAB*] 1.5 tab PO DAILY 10/18/18 [ History Confirmed 10/18/18] Omeprazole 20 - 40 mg PO DAILY 10/18/18 [History Confirmed 10/18/18] Oxycodone Myristate [Xtampza ER] 18 mg PO BID 10/18/18 [History Confirmed ] Warfarin TAB(*) [Coumadin TAB(*)] 7 mg PO DAILY 10/18/18 [History Confirmed 06/26] PMH/Surg Hx/FS Hx/Imm Hx Endocrine/Hematology History: Reports: Hx Anticoagulant Therapy - coumadin Denies: Hx Diabetes, Hx Thyroid Disease Cardiovascular History: Reports: Hx Hypertension - on meds Denies: Hx Congestive Heart Failure, Hx Pacemaker/ICD Respiratory History: Reports: Hx Chronic Obstructive Pulmonary Disease (COPD), Other Respiratory Problems/Disorders Denies: Hx Asthma History: Denies: Hx Renal Disease Musculoskeletal History: Reports: Hx Back Problems Sensory History: Reports: Hx Contacts or Glasses - reading glasses Denies: Hx Hearing Aid Opthamlomology History: Reports: Hx Contacts or Glasses - reading glasses Neurological History: Denies: Hx Dementia, Hx Seizures Psychiatric History: Reports: Hx Anxiety, Hx Substance Abuse - alcohol daily Denies: Hx Panic Disorder - Cancer History Cancer Type, Location and Year: PROSTATE CA - Surgical History Surgery Procedure, Year, and Place: 1995 LSP BACK SURGERY. 2010 PROSTATECTOMY. 2008 [facility] Hx Anesthesia Reactions: No - Immunization History Date of Tetanus Vaccine: UNK Date of Influenza Vaccine: 06/19 Infectious Disease History: No Infectious Disease History: Denies: Hx Hepatitis, Hx Human Immunodeficiency Virus (HIV), Traveled Outside the [place] in Last 30 Days - Family History Known Family History: Positive: Cardiac Disease Family History: father, brother, sister - CABG - Social History Alcohol Use: Occasionally Alcohol Amount: +ETOH today "couple" per pt Hx Substance Use: No Substance Use Type: Reports: None Hx Tobacco Use: Yes Smoking Status (MU): Current Every Day Smoker Type: Cigarettes Have You Smoked in the Last Year: Yes Review of Systems Positive: Other - feeling hot Positive: Palpitations - loud and fast, Chest Pain - sharp pain in left side Positive: Shortness Of Breath Negative: Vomiting Negative: Headache All Other Systems Reviewed And Are Negative: Yes Physical Exam - Summary Physical Exam Summary: VITAL SIGNS: Reviewed. GENERAL: Patient is a well-developed and nourished MALE who is lying comfortable in the stretcher. Patient is not in any acute respiratory distress. HEAD AND FACE: No signs of trauma. No ecchymosis, hematomas or skull depressions. No sinus tenderness. EYES: PERRLA, EOMI x 2, No injected conjunctiva, no nystagmus. EARS: Hearing grossly intact. Ear canals and tympanic membranes are within normal limits. MOUTH: Oropharynx within normal limits. NECK: Supple, trachea is midline, no adenopathy, no JVD, no carotid bruit, no c- spine tenderness, neck with full ROM. CHEST: Symmetric, no tenderness at palpation LUNGS: Clear to auscultation bilaterally. No wheezing or crackles. CVS: Regular rate and rhythm, S1 and S2 present, no gallops appreciated. Ejection sys murmur 2/6 ABDOMEN: Soft, non-tender. No signs of distention. No rebound no guarding, and no masses palpated. Bowel sounds are normal. EXTREMITIES: FROM in all major joints, no edema, no cyanosis or clubbing. NEURO: Alert and oriented x 3. No acute neurological deficits. Speech is normal and follows commands. SKIN: Dry and warm Triage Information Reviewed: Yes Vital Signs On Initial Exam: Initial Vitals Temp Pulse Resp BP Pulse Ox 97.3 F 76 19 197/107 93 10/18/18 08:25 10/18/18 08:25 10/18/18 08:25 10/18/18 08:25 10/18/18 08:25 Vital Signs Reviewed: Yes Diagnostics - Vital Signs Vital Signs Temp Pulse Resp BP Pulse Ox 10/18/18 08:25 97.3 F 76 19 197/107 93 - Laboratory Result Diagrams: 10/18/18 09:02 10/18/18 09:02 Lab Statement: Any lab studies that have been ordered have been reviewed, and results considered in the medical decision making process. - Radiology CXR Radiology Interpretation Completed By: Radiologist Summary of Radiographic Findings: IMPRESSION: STABLE CHRONIC INTERSTITIAL LUNG DISEASE. Dr. Lopez has reviewed this report. - EKG 08:58 Cardiac Rate: NL - at 67 bpm EKG Rhythm: Sinus Rhythm ST Segment: Normal EKG Comparison: Other - T wave inversion is different from EKG on 09/06/16 Summary of EKG Findings: EKG reveals sinus rhythm at [address] elevations, T wave inversion in II, III, aVF. T wave inversion is different from EKG on 09/06/16 Course/Dx - Course Assessment/Plan: This patient is a 62-year-old male who presents to the emergency department with chief complaint of having left-sided chest pain which is sharp, and palpitations. The patient has history of atrial fib and he is taking Coumadin. Blood test results without any significant abnormality except for the purposes of 11, creatinine 1.44, glucose 107, BNP is 544. Chest x-ray impression: A stable chronic interstitial lung disease. In the ED course the patient was Given a DuoNeb and symmetrical and his symptoms have significantly improved. The chest pain has resolved. All the patients symptoms have significantly improved. At this patient is feeling better. He does have any complaints and his saturation is 96% on room air. Patient is hemodynamically stable alert and oriented 3. I discussed all the findings and test results with the patient. Patient was instructed to return to the emergency room immediately if any of the symptoms return worsens. Plan of care was discussed with the patient and understands and agrees. All questions were answered at patient satisfaction. There were no further complaints or concerns. Lung exam before discharge: CTA B/L. Good air exchange. No wheezing or crackles heard. CVS : S1 and S2 present. No murmurs appreciated. Patient is alert and oriented x 3. Patient is hemodynamically stable. Patient will be discharged home with follow up PCP in the next 2-3 days - Diagnoses Provider Diagnoses: Atypical chest pain Discharge - Sign-Out/Discharge Documenting (check all that apply): Patient Departure - Discharge Patient Received Moderate/Deep Sedation with Procedure: No - Discharge Plan Condition: Stable Disposition: HOME Prescriptions: predniSONE TAB* [Deltasone 20 MG TAB*] 40 mg PO DAILY #8 tab Patient Education Materials: Chest Pain (ED), COPD (Chronic Obstructive Pulmonary Disease) (ED) Referrals: Megan Lomeli MD [Primary Care Provider] - 2 Days Additional Instructions: Follow up with your primary care provider in 2-3 days. Return to the Emergency Department for new or worsening symptoms. - Billing Disposition and Condition Condition: STABLE Disposition: Home - Attestation Statements Document Initiated by Slick: Yes Documenting Sherriibe: Benita Mcneal Provider For Whom Slick is Documenting (Include Credential): Umang Lopez MD Scribe Attestation: Benita Mitchell, scribed for Umang Lopez MD on 10/18/18 at 1308. Scribe Documentation Reviewed: Yes Provider Attestation: The documentation as recorded by the Benita pickard accurately reflects the service I personally performed and the decisions made by me, Umang Lopez MD Status of Scribe Document: Viewed
[2018-10-18 09:24] LABS: ABS Basophils 0.1 10^3/ul (0-0.2); ABS Eosinophils 0.3 10^3/ul (0-0.6); ABS Lymphocytes 1.7 10^3/ul (1.0-4.8); ABS Monocytes 0.7 10^3/ul (0-0.8); ABS Neutrophils 8.3 10^3/ul (1.5-7.7); ABS Nucleated RBC 0 10^3/ul; Eosinophil % 2.5 %; Hematocrit 44 % (36-46); Hemoglobin 14.6 g/dL (14.0-18.0); Lymphocyte % 15.3 %; Mean Corpuscular HGB Conc 33 g/dL (31-36); Mean Corpuscular Hemoglobin 31 pg (27-31); Mean Corpuscular Volume 93 fL (80-94); Mean Platelet Volume 7.3 fL (7.4-10.4); Nucleated Red Blood Cells % 0.2; Platelet Count 231 10^3/uL (150-450); Red Blood Count 4.69 10^6 /uL (4.18-5.48); Red Cell Distribution Width 16 % (10.5-15)
[2018-10-18 09:35] LABS: Albumin 3.8 g/dL (3.2-5.2); Albumin/Globulin Ratio 1.4 (1-3); BUN/Creatinine Ratio 15.3 (8-20); Calcium 9.1 mg/dL (8.6-10.3); EGFR African American 59.8 (>60); EGFR Non-African American 49.4 (>60); Globulin 2.7 g/dL (2-4); Potassium 4.7 mmol/L (3.5-5.0); Total Bilirubin 0.8 mg/dL (0.2-1.0); Total Protein 6.5 g/dL (6.4-8.9)
[2018-10-18 09:37] LABS: Troponin I 0.01 ng/mL (<0.04)
[2018-10-18 09:39] LABS: Activated Partial Thrombo Time 44.5 seconds (26.0-36.3)
[2018-10-18 09:41] LABS: CKMB ng/mL 4.6 ng/mL (0.6-6.3)
[2018-10-18] MEDS ORDERED: Albuterol/Ipratropium NEB.SOL* Albuterol 2.5 MG/Ipratropium 0.5 MG 3 ML INH ONE (09:55)
[2018-10-18] MEDS ORDERED: methylPREDNISolone 125 MG* 2 ML VIAL IV ONE (09:55)
[2018-10-18 09:57] LABS: TSH (Thyroid Stimulating Horm) 1.42 mcIU/mL (0.34-5.60)
[2018-10-18 13:15] VITALS: BP 131/71
== END 2018-10-18 13:15 | disposition home or self-care (01) ==
LOC: ED 08:22
DX: R07.89 Other chest pain (principal); I11.9 Hypertensive heart disease without heart failure; R94.31 Abnormal electrocardiogram [ECG] [EKG]; J44.9 Chronic obstructive pulmonary disease, unspecified; J84.9 Interstitial pulmonary disease, unspecified; F17.210 Nicotine dependence, cigarettes, uncomplicated; Z79.01 Long term (current) use of anticoagulants; Z79.899 Other long term (current) drug therapy; Z85.46 Personal history of malignant neoplasm of prostate
CPT/HCPCS: 36415; 71045; 80053; 82553; 83605; 83735; 83880; 84443; 84484; 85025; 85379; 85610; 85730; 93005; 96374; 99283; A9270-GY; J2930

== ENCOUNTER 2018-10-28 08:14 | Day surgery (SDC) | payer MEDICARE ==
[2018-10-28] MEDS ORDERED: Midazolam* 1 MG/ML 2 ML VIAL (2 MG) ONE ×2 (09:32→09:41)
[2018-10-28 10:15] VITALS: BP 107/67
[2018-10-28] MEDS ORDERED: Ketorolac 0.5% OPHTH (NF) 0.5 % 5 ML BTL ONE (11:56)
[2018-10-28] MEDS ORDERED: Povidone Iodine 5% OPTH* 30 ML BTL ONE (11:56)
[2018-10-28] MEDS ORDERED: Phenylephrine OPHTH SOL 2.5%* 2 ML ONE (11:56)
[2018-10-28] MEDS ORDERED: Tetracaine 0.5% OPTH.SOL 4 ML* 1 DROP BTL ONE (11:56)
[2018-10-28] MEDS ORDERED: Lidocaine 1%* 5 ML VIAL ONE (11:56)
[2018-10-28] MEDS ORDERED: Neomycin/Polymy/Dex OPHTH.OIN* 3.5 GM ONE (11:56)
[2018-10-28] MEDS ORDERED: Tropicamide 1% OPTH.SOL* BTL ONE (11:56)
[2018-10-28] MEDS ORDERED: Cyclopentolate 1% OPTH.SOL* 2 ML BTL ONE (11:56)
[2018-10-28] MEDS ORDERED: acetaZOLAMIDE TAB* 250 MG ONE (11:56)
--- NOTE | 2018-10-28 14:53 | OP ---
DATE OF OPERATION: 10/28/18 - [facility] DATE OF : 51 SURGEON: Cody Paiz MD ANESTHESIA: Monitored anesthesia care. PRE-OP DIAGNOSIS: Cataract, right eye. POST-OP DIAGNOSIS: Cataract, right eye. OPERATIVE PROCEDURE: Extracapsular cataract extraction of the right eye with intraocular lens implant. IMPLANT: SN60WF 20.0 diopter lens to the right eye. COMPLICATIONS: None. DESCRIPTION OF PROCEDURE: The patient was given phenylephrine 2.5 % and cyclopentolate 1% eye drops to the operative eye in the preoperative area. The patient was taken to the operating room where a time-out was taken to identify the correct patient, site, and side of surgery. The patient's right eye was prepped and draped in the usual sterile fashion with 5% Betadine. A second time -out was taken to verify the correct patient, side, and site of surgery and correct lens implant. A lid speculum was placed to the right eye. A 1 mm paracentesis blade was used to make a clear corneal incision in the superotemporal quadrant. Preservative-free 1% lidocaine was injected into the anterior chamber. DisCoVisc was then injected into the anterior chamber. A 2.75 mm keratome blade was used to make a triplanar incision at the inferotemporal position. 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 A cystotome initiated a capsulorrhexis, which was completed with Utrata forceps in a continuous and curvilinear manner. Hydrodissection of the lens was performed with BSS on a cannula. The lens could be spun in a capsular bag. The phacoemulsification handpiece was used with a [id number] technique to remove the nucleus. The I/A handpiece then removed the residual cortical lens material. DisCoVisc was then injected to inflate the capsular bag. The planned SN60WF 20.0 diopter lens was then injected into the capsular bag. The Malyugin ring was then removed from the anterior chamber. The residual DisCoVisc was then removed from the eye with the I/A handpiece. The corneal incisions were hydrated and no leaks occurred at physiologic pressure around 20 mmHg per palpation. The lid speculum was removed and drapes were removed. Maxitrol ointment was placed to the surface of the operative eye. An adhesive patch and shield was then placed on the operative eye. The patient was taken to the postoperative area in stable condition. [id number]/[facility] #: [id number] MAISHA
== END 2018-10-28 10:22 | disposition home or self-care (01) ==
LOC: OREAST 08:14
PROVIDERS: ATTEND Student in an Organized Health Care Education/Training Program
DX: H25.13 Age-related nuclear cataract, bilateral (principal); H40.1213 Low-tension glaucoma, right eye, severe stage; H40.1210 Low-tension glaucoma, right eye, stage unspecified; H40.1224 Low-tension glaucoma, left eye, indeterminate stage; I10 Essential (primary) hypertension; K21.9 Gastro-esophageal reflux disease without esophagitis; J44.9 Chronic obstructive pulmonary disease, unspecified; R00.1 Bradycardia, unspecified; I48.0 Paroxysmal atrial fibrillation; R07.89 Other chest pain
CPT/HCPCS: A9270-GY; J2250; V2632

== ENCOUNTER 2018-11-04 07:32 | Day surgery (SDC) | payer MEDICARE ==
[~2018-11-04 07:32] MED LIST: Acetaminophen TAB* 325 MG PO PRN; Buffered Lidocaine 1% SYRIN* 1 ML/SYRINGE INTRADERM ONE
[2018-11-04] MEDS ORDERED: Tropicamide 1% OPTH.SOL* BTL ONE (08:38)
[2018-11-04] MEDS ORDERED: Lidocaine 1%* 5 ML VIAL ONE (08:38)
[2018-11-04] MEDS ORDERED: Cyclopentolate 1% OPTH.SOL* 2 ML BTL ONE (08:38)
[2018-11-04] MEDS ORDERED: Tetracaine 0.5% OPTH.SOL 4 ML* 1 DROP BTL ONE (08:38)
[2018-11-04] MEDS ORDERED: Ketorolac 0.5% OPHTH (NF) 0.5 % 5 ML BTL ONE (08:38)
[2018-11-04] MEDS ORDERED: Phenylephrine OPHTH SOL 2.5%* 2 ML ONE (08:38)
[2018-11-04] MEDS ORDERED: acetaZOLAMIDE TAB* 250 MG ONE (08:38)
[2018-11-04] MEDS ORDERED: Povidone Iodine 5% OPTH* 30 ML BTL ONE (08:38)
[2018-11-04] MEDS ORDERED: Neomycin/Polymy/Dex OPHTH.OIN* 3.5 GM ONE (08:38)
[2018-11-04] MEDS ORDERED: Midazolam* 1 MG/ML 2 ML VIAL (2 MG) ONE ×2 (09:41→10:34)
[2018-11-04 11:12] VITALS: BP 102/58
--- NOTE | 2018-11-04 21:37 | OP ---
DATE OF OPERATION: 11/04/18 - [facility] DATE OF : 51 SURGEON: Cody Paiz MD ANESTHESIA: Monitored anesthesia care. PRE-OP DIAGNOSIS: Cataract, left eye. POST-OP DIAGNOSIS: Cataract, left eye. OPERATIVE PROCEDURE: Extracapsular cataract extraction of the left eye with intraocular lens implant. IMPLANT: SN60WF 19.5 diopter lens to the left eye. COMPLICATIONS: None. DESCRIPTION OF PROCEDURE: The patient was given phenylephrine 2.5 % and cyclopentolate 1% eye drops to the operative eye in the preoperative area. The patient was taken to the operating room where a time-out was taken to identify the correct patient, site, and side of surgery. The patient's left eye was prepped and draped in the usual sterile fashion with 5% Betadine. A second time- out was taken to verify the correct patient, side, and site of surgery, as well as the correct lens implant. A lid speculum was placed to the left eye. A 1mm paracentesis blade was used to make a clear corneal incision. Preservative-free 1% lidocaine was injected into the anterior chamber. DisCoVisc was then injected into the anterior chamber. A 2.75 mm keratome blade was used to make a triplanar incision. A cystotome initiated a capsulorrhexis, which was completed with Utrata forceps in a continuous and curvilinear manner. Hydrodissection of the lens was performed with BSS on a cannula. The lens could be spun in a capsular bag. The phacoemulsification handpiece was used with a divide-and- conquer technique to remove the nucleus. The I/A handpiece then removed the residual cortical lens material. DisCoVisc was injected to inflate the capsular bag. The planned SN60WF 19.5 diopter lens was injected into the capsular bag. The residual DisCoVisc was removed from the eye with the I/A handpiece. The corneal incisions were hydrated and no leaks occurred at physiologic pressure around 20 mmHg per palpation. The lid speculum was removed and drapes were removed. Maxitrol ointment was placed to the surface of the operative eye. An adhesive patch and shield was then placed on the operative eye. The patient was taken to the postoperative area in stable condition. [id number]/[facility] #: [id number] [facility]
== END 2018-11-04 11:03 | disposition home or self-care (01) ==
LOC: OREAST 07:32
PROVIDERS: ATTEND Student in an Organized Health Care Education/Training Program
DX: H25.12 Age-related nuclear cataract, left eye (principal); H40.1213 Low-tension glaucoma, right eye, severe stage; I48.91 Unspecified atrial fibrillation; Z79.01 Long term (current) use of anticoagulants; Z87.891 Personal history of nicotine dependence; I10 Essential (primary) hypertension; J44.9 Chronic obstructive pulmonary disease, unspecified
CPT/HCPCS: A9270-GY; J2250; V2632

== ENCOUNTER 2022-07-13 17:16 | Inpatient (IN) ==
[2022-07-13 17:44] LABS: ABS Basophils 0.1 10^3/ul (0-0.2); ABS Lymphocytes 1.2 10^3/ul (1.0-4.8); ABS Monocytes 0.7 10^3/ul (0-0.8); ABS Neutrophils 6.2 10^3/ul (1.5-7.7); Eosinophil % 0.6 %; Hematocrit 51 % (42-52); Hemoglobin 16.8 g/dL (14.0-18.0); Mean Corpuscular HGB Conc 33 g/dL (31-36); Mean Corpuscular Hemoglobin 32 pg (27-31); Mean Corpuscular Volume 97 fL (80-94); Nucleated Red Blood Cells % 0.3; Platelet Count 175 10^3/uL (150-450); Red Blood Count 5.26 10^6 /uL (4.18-5.48); Red Cell Distribution Width 16 % (10-15); White Blood Count 8.3 10^3/uL (3.5-10.8)
[2022-07-13 17:55] LABS: Activated Partial Thrombo Time 56.8 seconds (26.0-38.0); INR 3.4 (0.88-1.18)
[2022-07-13] MEDS ORDERED: Digoxin IV 0.5 MG/2 ML AMP (0.25 MG/ML) IV SLOW PU ONE (18:03)
[2022-07-13 18:24] LABS: ALT 14 U/L (7-52); Albumin 3.3 g/dL (3.2-5.2); Albumin/Globulin Ratio 1.1 (1-3); Alkaline Phosphatase 97 U/L (35-149); Blood Urea Nitrogen 27 mg/dL (6-24); CO2 Carbon Dioxide 30 mmol/L (22-32); Calcium 8.8 mg/dL (8.6-10.3); Chloride 86 mmol/L (101-111); Glucose 85 mg/dL (70-100); Magnesium 1.8 mg/dL (1.9-2.7); Sodium 128 mmol/L (135-145); Total Protein 6.3 g/dL (6.4-8.9); eGFR CKD-EPI 69.3 (>60)
[2022-07-13 18:29] LABS: Anion Gap 12 mmol/L (2-11)
[2022-07-13] MEDS ORDERED: Magnesium Sulfate IV 1GM/100ML 1 GM/100 ML BAG IV ONE (18:30)
[2022-07-13 18:39] LABS: TSH Ultra Thyroid Stim Horm 3.47 mcIU/mL (0.34-5.60)
[2022-07-13 18:50] LABS: High Sens Troponin Baseline 62 pg/mL (<20)
[2022-07-13] MEDS ORDERED: Iohexol 350 (CONTRAST) 500 ML MDV IV ONE (18:58)
[2022-07-13 19:14] LABS: PCO2 Arterial 40 mmHg (35-45); PO2 Arterial 82 mmHg (80-100)
[2022-07-13 19:26] LABS: High Sensitivity Troponin 1 Hr 73 pg/mL (<20)
[2022-07-13] MEDS ORDERED: Furosemide 40 mg/4 ml IV VIAL IV SLOW PU ONE (19:32)
[2022-07-13 21:12] LABS: High Sensitivity Troponin 3 Hr 94 pg/mL (<20)
[2022-07-13] MEDS ORDERED: cefTRIAXone 1 gm/50 mL D5W 1 GM/50 ML BAG IV ONE ×2 (21:19→21:33)
[2022-07-13] MEDS ORDERED: DOXYcycline 100 MG in NS 0.9% 250 ml 250 ML IVPB ONE (21:20)
[2022-07-13 21:49] LABS: C Reactive Protein 58.33 mg/L (<8.01)
[2022-07-13 22:41] LABS: Protime (Maddrey) 37.7 seconds (9.5-12.8)
[2022-07-13 23:14] LABS: Direct Bilirubin Redraw 2.6 mg/dL (0.03-0.18)
[2022-07-14 02:48] LABS: Hepatitis B Surface Antigen Nonreactive (Nonreactive)
[2022-07-14] MEDS ORDERED: Albumin Human 25% 25 GM/100 ML BTL IV ONE (02:50)
[2022-07-14 02:53] LABS: Hepatitis A Ab IgM Negative (Negative)
[2022-07-14 02:54] LABS: Hepatitis B Core IgM Nonreactive (Nonreactive)
[2022-07-14] MEDS ORDERED: Potassium Chloride LIQUID 20 MEQ/15 ML LIQUID PO ONE (02:55)
[2022-07-14] MEDS ORDERED: Magnesium Sulfate 2 gm BAG 2 GM/50 ML BAG IVPB ONE (02:57)
[2022-07-14 02:59] LABS: HIV 4th Generation Nonreactive (Nonreactive)
[2022-07-14] MEDS ORDERED: Norepinephrine 16MCG/ML BAGD5W 4,000 MCG/250 ML BAG IV SCH (03:00)
[2022-07-14 03:05] LABS: Hepatitis C Antibody Negative (Negative)
[2022-07-14] MEDS ORDERED: oxyCODONE SR 10 mg TAB PO ONE (04:30)
[2022-07-14] MEDS: cefTRIAXone 1 gm/50 mL D5W 1 GM/50 ML BAG IV SCH (04:43)
[2022-07-14] MEDS: KCL 20 MEQ/100 ML IVPREMIX 20 MEQ/100 ML BAG IV SCH ×2 (05:04→08:37)
[2022-07-14 05:07] LABS: ABS Basophils 0.1 10^3/ul (0-0.2); ABS Eosinophils 0.2 10^3/ul (0-0.6); ABS Lymphocytes 1.1 10^3/ul (1.0-4.8); ABS Monocytes 0.5 10^3/ul (0-0.8); Eosinophil % 2.2 %; Hematocrit 51 % (42-52); Hemoglobin 16.9 g/dL (14.0-18.0); Lymphocyte % 13.6 %; Mean Corpuscular HGB Conc 33 g/dL (31-36); Mean Corpuscular Hemoglobin 32 pg (27-31); Mean Corpuscular Volume 97 fL (80-94); Mean Platelet Volume 8.1 fL (7.4-10.4); Nucleated Red Blood Cells % 0.1; Platelet Count 147 10^3/uL (150-450); Red Cell Distribution Width 16 % (10-15); White Blood Count 7.9 10^3/uL (3.5-10.8)
[2022-07-14] MEDS: methylPREDNISolone SOD SUCC 40 mg/ml 1 ml VIAL IV SCH ×3 (05:09→20:08)
[2022-07-14 05:31] LABS: Albumin 3.6 g/dL (3.2-5.2); Albumin/Globulin Ratio 1.3 (1-3); Calcium 8.7 mg/dL (8.6-10.3); Globulin 2.8 g/dL (2-4); Magnesium 1.9 mg/dL (1.9-2.7); Potassium 3.6 mmol/L (3.5-5.0); Total Bilirubin 4.3 mg/dL (0.2-1.0); Total Protein 6.4 g/dL (6.4-8.9)
[2022-07-14] MEDS: DOXYcycline 100 MG in NS 0.9% 250 ml 250 ML IVPB SCH ×2 (05:38→17:14)
[2022-07-14 05:49] LABS: Urine Appearance Clear; Urine Bacteria Absent (Absent); Urine Bilirubin Negative (Negative); Urine Blood 2+ (Negative); Urine Color Yellow; Urine Glucose Negative (Negative); Urine Ketones Negative (Negative); Urine Nitrite Negative (Negative); Urine Protein Negative (Negative); Urine Red Blood Cell Trace(0-2/hpf) (Absent); Urine Urobilinogen Negative (Negative); Urine White Blood Cell Trace(0-5/hpf) (Absent)
[2022-07-14 05:50] LABS: INR 2.88 (0.88-1.18)
[2022-07-14] MEDS: Albuterol/Ipratropium NEB.SOL (2.5/0.5 MG) 3 ML NEB.SOLN INH SCH ×6 (05:54→23:03)
[2022-07-14] MEDS: Pantoprazole VIAL 40 MG VIAL IV SCH (08:37)
[2022-07-14] MEDS ORDERED: Magnesium Hydroxide LIQ 30 ML UDC PO PRN (08:53)
[2022-07-14] MEDS ORDERED: Digoxin IV 0.5 MG/2 ML AMP (0.25 MG/ML) IV SLOW PU ONE (09:48)
[2022-07-14] MEDS ORDERED: Warfarin per PHARMACY **NOTE FOLLOW UP SCH (10:00)
[2022-07-14] MEDS: Magnesium Hydroxide LIQ 30 ML UDC PO SCH ×2 (11:13→20:08)
[2022-07-14] MEDS ORDERED: Warfarin - No Order Today **NOTE FOLLOW UP ONE (17:00)
[2022-07-14] MEDS: Morphine ORAL.SOLN 10 mg 2 mg/ml UDC 5 ml (10 mg) PO PRN (17:02)
[2022-07-14] MEDS: Warfarin DAILY REMINDER **NOTE FOLLOW UP SCH (17:15)
[2022-07-14] MEDS ORDERED: oxyCODONE SR 15 mg TAB PO SCH (18:00)
[2022-07-14] MEDS: oxyCODONE SR 15 mg TAB PO SCH (18:27)
[2022-07-14] MEDS ORDERED: Mometasone 220 MCG MDI INH SCH (19:00)
[2022-07-15] MEDS ORDERED: Norepinephrine 16MCG/ML BAGD5W 4,000 MCG/250 ML BAG IV SCH (01:00)
[2022-07-15] MEDS: Albuterol/Ipratropium NEB.SOL (2.5/0.5 MG) 3 ML NEB.SOLN INH SCH ×6 (03:21→22:40)
[2022-07-15] MEDS: cefTRIAXone 1 gm/50 mL D5W 1 GM/50 ML BAG IV SCH (04:21)
[2022-07-15] MEDS: methylPREDNISolone SOD SUCC 40 mg/ml 1 ml VIAL IV SCH ×2 (05:14→17:08)
[2022-07-15] MEDS: DOXYcycline 100 MG in NS 0.9% 250 ml 250 ML IVPB SCH ×2 (05:15→17:08)
[2022-07-15 05:27] LABS: Hematocrit 42 % (42-52); Hemoglobin 14.5 g/dL (14.0-18.0); Mean Corpuscular HGB Conc 34 g/dL (31-36); Mean Corpuscular Hemoglobin 33 pg (27-31); Mean Corpuscular Volume 96 fL (80-94); Mean Platelet Volume 7.8 fL (7.4-10.4); Platelet Count 142 10^3/uL (150-450); Red Blood Count 4.38 10^6 /uL (4.18-5.48); Red Cell Distribution Width 16 % (10-15); White Blood Count 4.8 10^3/uL (3.5-10.8)
[2022-07-15 05:36] LABS: INR 3.14 (0.88-1.18)
[2022-07-15 06:08] LABS: Albumin 3.1 g/dL (3.2-5.2); Albumin/Globulin Ratio 1.3 (1-3); Calcium 8.5 mg/dL (8.6-10.3); Globulin 2.4 g/dL (2-4); Magnesium 2.3 mg/dL (1.9-2.7); Potassium 3.6 mmol/L (3.5-5.0); Total Bilirubin 2.4 mg/dL (0.2-1.0); Total Protein 5.5 g/dL (6.4-8.9); eGFR CKD-EPI 95.7 (>60)
[2022-07-15] MEDS ORDERED: CMCS:Oral Rinse (Biotene)(NF) 237 ML or 473 ML ORAL RINSE BTL MT SCH (08:00)
[2022-07-15 08:02] LABS: Osmolality Serum 274 mOsm/kg (275-295)
[2022-07-15] MEDS ORDERED: Potassium Chlor 10 meq TAB PO SCH (09:00)
[2022-07-15] MEDS ORDERED: Furosemide 40 mg/4 ml IV VIAL IV SLOW PU ONE (09:15)
[2022-07-15] MEDS: Pantoprazole VIAL 40 MG VIAL IV SCH (09:17)
[2022-07-15] MEDS: Magnesium Hydroxide LIQ 30 ML UDC PO SCH (09:17)
[2022-07-15] MEDS: Polyethylene Glycol 3350 17 GM PACKET PO PRN (09:17)
[2022-07-15] MEDS: oxyCODONE SR 15 mg TAB PO SCH ×2 (09:17→20:31)
[2022-07-15] MEDS: Senna TAB 8.6 mg TAB PO PRN ×2 (09:17→20:31)
[2022-07-15] MEDS: Morphine ORAL.SOLN 10 mg 2 mg/ml UDC 5 ml (10 mg) PO PRN ×2 (09:17→14:03)
[2022-07-15] MEDS: KCL 20 MEQ/100 ML IVPREMIX 20 MEQ/100 ML BAG IV SCH ×2 (09:18→15:20)
[2022-07-15 14:34] LABS: Urine Osmo 239 mOsm/kg (150-1150)
[2022-07-15] MEDS ORDERED: KCL 20 MEQ/100 ML IVPREMIX 20 MEQ/100 ML BAG ONE (15:17)
[2022-07-15] MEDS ORDERED: Warfarin - No Order Today **NOTE FOLLOW UP ONE (17:00)
[2022-07-15] MEDS: Warfarin DAILY REMINDER **NOTE FOLLOW UP SCH (17:08)
[2022-07-15] MEDS ORDERED: guaiFENesin 100 mg/5 ml LIQ unit dose cup PO ONE (22:08)
[2022-07-16] MEDS: Albuterol/Ipratropium NEB.SOL (2.5/0.5 MG) 3 ML NEB.SOLN INH SCH ×2 (03:16→07:04)
[2022-07-16] MEDS: cefTRIAXone 1 gm/50 mL D5W 1 GM/50 ML BAG IV SCH (03:51)
[2022-07-16] MEDS: methylPREDNISolone SOD SUCC 40 mg/ml 1 ml VIAL IV SCH (04:45)
[2022-07-16] MEDS: DOXYcycline 100 MG in NS 0.9% 250 ml 250 ML IVPB SCH ×2 (04:45→16:37)
[2022-07-16 05:01] LABS: Hematocrit 46 % (42-52); Hemoglobin 15.4 g/dL (14.0-18.0); Mean Corpuscular HGB Conc 33 g/dL (31-36); Mean Corpuscular Hemoglobin 33 pg (27-31); Mean Corpuscular Volume 98 fL (80-94); Mean Platelet Volume 8.1 fL (7.4-10.4); Platelet Count 167 10^3/uL (150-450); Red Blood Count 4.74 10^6 /uL (4.18-5.48); Red Cell Distribution Width 16 % (10-15); White Blood Count 10.2 10^3/uL (3.5-10.8)
[2022-07-16 05:06] LABS: INR 4.74 (0.88-1.18)
[2022-07-16 06:19] LABS: Albumin 3.3 g/dL (3.2-5.2); Albumin/Globulin Ratio 1.1 (1-3); Calcium 8.7 mg/dL (8.6-10.3); Globulin 2.9 g/dL (2-4); Magnesium 2.7 mg/dL (1.9-2.7); Phosphorus 2.3 mg/dL (2.5-5.0); Potassium 4.9 mmol/L (3.5-5.0); Total Bilirubin 1.5 mg/dL (0.2-1.0); Total Protein 6.2 g/dL (6.4-8.9); eGFR CKD-EPI 96.8 (>60)
[2022-07-16] MEDS: Pantoprazole VIAL 40 MG VIAL IV SCH (08:53)
[2022-07-16] MEDS: oxyCODONE SR 15 mg TAB PO SCH ×2 (08:54→19:15)
[2022-07-16] MEDS: Morphine ORAL.SOLN 10 mg 2 mg/ml UDC 5 ml (10 mg) PO PRN ×2 (09:09→20:59)
[2022-07-16] MEDS ORDERED: Furosemide 40 mg/4 ml IV VIAL IV ONE (09:15)
[2022-07-16] MEDS ORDERED: Albuterol/Ipratropium NEB.SOL (2.5/0.5 MG) 3 ML NEB.SOLN INH PRN (10:38)
[2022-07-16] MEDS ORDERED: Furosemide 40 mg/4 ml IV VIAL IV SLOW PU ONE (12:06)
[2022-07-16] MEDS ORDERED: Ondansetron ODT 4 mg TAB 4 MG TAB SL ONE (12:10)
[2022-07-16] MEDS ORDERED: Warfarin - No Order Today **NOTE FOLLOW UP ONE (17:00)
[2022-07-16] MEDS: Warfarin DAILY REMINDER **NOTE FOLLOW UP SCH (17:58)
[2022-07-16] MEDS: Ondansetron 4 mg VIAL 2 MG/ML 2 ml VIAL IV PRN (20:59)
[2022-07-17] MEDS: cefTRIAXone 1 gm/50 mL D5W 1 GM/50 ML BAG IV SCH (04:07)
[2022-07-17 04:31] LABS: Hematocrit 47 % (42-52); Hemoglobin 15.6 g/dL (14.0-18.0); Mean Corpuscular HGB Conc 33 g/dL (31-36); Mean Corpuscular Hemoglobin 32 pg (27-31); Mean Corpuscular Volume 98 fL (80-94); Mean Platelet Volume 8.6 fL (7.4-10.4); Platelet Count 166 10^3/uL (150-450); Red Blood Count 4.84 10^6 /uL (4.18-5.48); Red Cell Distribution Width 16 % (10-15); White Blood Count 12.3 10^3/uL (3.5-10.8)
[2022-07-17 04:35] LABS: INR 4.98 (0.88-1.18)
[2022-07-17 05:01] LABS: ABS Lymphocytes 1.5 10^3/ul (1.0-4.8); ABS Monocytes 0.7 10^3/ul (0-0.8)
[2022-07-17] MEDS: Morphine ORAL.SOLN 10 mg 2 mg/ml UDC 5 ml (10 mg) PO PRN ×2 (05:11→18:20)
[2022-07-17 05:12] LABS: Calcium 8.7 mg/dL (8.6-10.3); Magnesium 2.4 mg/dL (1.9-2.7); Potassium 4.9 mmol/L (3.5-5.0); eGFR CKD-EPI 86.1 (>60)
[2022-07-17] MEDS: DOXYcycline 100 MG in NS 0.9% 250 ml 250 ML IVPB SCH (05:12)
[2022-07-17] MEDS: Pantoprazole VIAL 40 MG VIAL IV SCH (07:56)
[2022-07-17] MEDS: oxyCODONE SR 15 mg TAB PO SCH ×2 (07:56→21:26)
[2022-07-17] MEDS ORDERED: Ondansetron ODT 4 mg TAB 4 MG TAB SL ONE (09:01)
[2022-07-17] MEDS: Ondansetron 4 mg VIAL 2 MG/ML 2 ml VIAL IV PRN (12:15)
[2022-07-17] MEDS ORDERED: Warfarin - No Order Today **NOTE FOLLOW UP ONE (17:00)
[2022-07-17] MEDS ORDERED: Gadoteridol (CONTRAST) 279.3 MG/ML 10 ML IV ONE (18:47)
[2022-07-17] MEDS: Warfarin DAILY REMINDER **NOTE FOLLOW UP SCH (19:33)
[2022-07-18 07:05] LABS: INR 2.85 (0.88-1.18)
[2022-07-18 08:12] LABS: Albumin 3.2 g/dL (3.2-5.2); Albumin/Globulin Ratio 1.3 (1-3); Calcium 8.5 mg/dL (8.6-10.3); Globulin 2.4 g/dL (2-4); Potassium 4.5 mmol/L (3.5-5.0); Total Bilirubin 1.3 mg/dL (0.2-1.0); Total Protein 5.6 g/dL (6.4-8.9); eGFR CKD-EPI 76.4 (>60)
[2022-07-18 08:21] LABS: Hematocrit 47 % (42-52); Hemoglobin 15.6 g/dL (14.0-18.0); Mean Corpuscular HGB Conc 33 g/dL (31-36); Mean Corpuscular Hemoglobin 32 pg (27-31); Mean Corpuscular Volume 97 fL (80-94); Mean Platelet Volume 8.4 fL (7.4-10.4); Platelet Count 137 10^3/uL (150-450); Red Blood Count 4.84 10^6 /uL (4.18-5.48); Red Cell Distribution Width 16 % (10-15); White Blood Count 11.4 10^3/uL (3.5-10.8)
[2022-07-18] MEDS: oxyCODONE SR 15 mg TAB PO SCH ×2 (09:51→21:29)
[2022-07-18] MEDS: Polyethylene Glycol 3350 17 GM PACKET PO PRN (09:51)
[2022-07-18] MEDS: Pantoprazole VIAL 40 MG VIAL IV SCH (09:51)
[2022-07-18 10:55] LABS: ABS Lymphocytes 2.5 10^3/ul (1.0-4.8); ABS Monocytes 1.1 10^3/ul (0-0.8); ABS Neutrophils 7.7 10^3/ul (1.5-7.7); Eosinophil % 0.1 %; Lymphocyte % 22.2 %; Nucleated Red Blood Cells % 0.3
[2022-07-18] MEDS ORDERED: Furosemide 20 mg/2 ml IV VIAL IV SLOW PU ONE (11:15)
[2022-07-18] MEDS: Morphine ORAL.SOLN 10 mg 2 mg/ml UDC 5 ml (10 mg) PO PRN (13:06)
[2022-07-18] MEDS: Ondansetron 4 mg VIAL 2 MG/ML 2 ml VIAL IV PRN (15:52)
[2022-07-18] MEDS: Warfarin DAILY REMINDER **NOTE FOLLOW UP SCH (16:50)
[2022-07-19 07:38] LABS: Hematocrit 48 % (42-52); Hemoglobin 16.1 g/dL (14.0-18.0); Mean Corpuscular HGB Conc 33 g/dL (31-36); Mean Corpuscular Hemoglobin 32 pg (27-31); Mean Corpuscular Volume 97 fL (80-94); Mean Platelet Volume 8.1 fL (7.4-10.4); Platelet Count 166 10^3/uL (150-450); Red Blood Count 4.97 10^6 /uL (4.18-5.48); Red Cell Distribution Width 16 % (10-15); White Blood Count 12.3 10^3/uL (3.5-10.8)
[2022-07-19 07:48] LABS: INR 1.94 (0.88-1.18)
[2022-07-19 07:54] LABS: Calcium 8.4 mg/dL (8.6-10.3); eGFR CKD-EPI 65.9 (>60)
[2022-07-19 08:10] LABS: Anisocytosis 1+
[2022-07-19 08:12] LABS: ABS Lymphocytes 0.7 10^3/ul (1.0-4.8)
[2022-07-19] MEDS: oxyCODONE SR 15 mg TAB PO SCH (09:15)
[2022-07-19] MEDS: Polyethylene Glycol 3350 17 GM PACKET PO PRN (09:15)
[2022-07-19] MEDS: Pantoprazole VIAL 40 MG VIAL IV SCH (09:15)
[2022-07-19 11:13] VITALS: BP 124/82
== END 2022-07-19 13:13 | disposition home or self-care (01) | DRG 871 ==
LOC: EDHOLD 17:16 → ED 17:16 → OBSVTOIN 22:14 → SUATTDRO 22:14 → EDHOLD 07-14 01:45 → ICU 07-14 02:51 → MED 07-17 13:08
PROVIDERS: ADMIT Internal Medicine; ATTEND Hospitalist